=== PATIENT | female | born 1930 | race Caucasian/White ===

== ENCOUNTER → 2016-08-18 | Outpatient (CLI) | payer MEDICARE, OTHER ==
[~2016-08-18] MED LIST: ATOR40TA28 PO; CYAN100072 PO; DONE10TA PO; FOLI1 PO; LEVO75TA4 PO; MEMA10TA11 PO; VITAD400 PO; [UNRECOGNIZED DRUG - OTHER] INJ ONE
== END | disposition home or self-care (01) ==
LOC: RADMN 08:35
PROVIDERS: ATTEND Internal Medicine
DX: E07.9 Disorder of thyroid, unspecified (principal); R94.6 Abnormal results of thyroid function studies
CPT/HCPCS: A9516